=== PATIENT | female | born 1980 | race Caucasian/White ===

== ENCOUNTER 2018-03-16 10:35 | Inpatient (IN) | payer BC ==
[2018-03-16] MEDS ORDERED: Oxytocin/Lactated Ringers 10 UNIT/1,000 ML BAG IV SCH ×2 (11:15)
[2018-03-16] MEDS ORDERED: Nalbuphine 20 MG/ML 1 ML Syringe IVPUSH PRN (11:15)
[2018-03-16] MEDS ORDERED: Ondansetron 4 MG/2 ML SDV IVPUSH PRN (11:15)
[2018-03-16] MEDS: Lactated Ringers 1,000 ML IV SCH ×3 (13:38→18:27)
[2018-03-16] MEDS ORDERED: Lidocaine 1% 50 ML MDV INJECT ONE (15:00)
--- NOTE | 2018-03-16 15:49 | PCM.PREANE ---
Preanesthetic Assessment - Anesthesia/Transfusion/Family Hx Anesthesia History: Prior Anesthesia Without Reaction Family History of Anesthesia Reaction: No Transfusion History: No Prior Transfusion(s) - Review of Systems General: No Symptoms Pulmonary: No Symptoms Cardiovascular: No Symptoms Gastrointestinal: Abdominal Pain (labor contractions) Neurological: No Symptoms Other: Reports: Easy Bleeding (spoting with conractions) - Physical Assessment Pulse: 92 O2 Sat by Pulse Oximetry: 97 Respiratory Rate: 20 Blood Pressure: 115/82 Temperature: 36.3 C Vital Signs: Last Vital Signs Temp 36.2 C 03/16/18 11:35 Pulse 92 03/16/18 11:03 Resp BP 115/82 03/16/18 10:43 Pulse Ox 97 03/16/18 11:35 Height: 1.68 m Weight: 73.482 kg ASA Class: 2 Mental Status: Alert & Oriented x3 Airway Class: Mallampati = 1 Dentition: Reports: Normal Dentition Thyro-Mental Finger Breadths: 3 Mouth Opening Finger Breadths: 3 ROM/Head Extension: Full Lungs: Clear to Auscultation, Normal Respiratory Effort Cardiovascular: Regular Rate, Regular Rhythm - Lab Values: Laboratory Last Values WBC 11.91 K/mm3 (3.98-10.04) H 03/16/18 11:32 RBC 4.38 M/mm3 (3.98-5.22) 03/16/18 11:32 Hgb 13.6 gm/L (11.2-15.7) 03/16/18 11:32 Hct 40.0 % (34.1-44.9) 03/16/18 11:32 MCV 91.3 fl (79.4-94.8) 03/16/18 11:32 MCH 31.1 pg (25.6-32.2) 03/16/18 11:32 MCHC 34.0 g/dl (32.2-35.5) 03/16/18 11:32 RDW Std Deviation 45.4 fL (36.4-46.3) 03/16/18 11:32 Plt Count 188 K/mm3 (182-369) 03/16/18 11:32 MPV 10.1 fl (9.4-12.3) 03/16/18 11:32 Neut % (Auto) 71.6 % (34.0-71.1) H 03/16/18 11:32 Lymph % (Auto) 18.6 % (19.3-51.7) L 03/16/18 11:32 [place] % (Auto) 7.6 % (4.7-12.5) 03/16/18 11:32 Eos % (Auto) 0.6 (0.7-5.8) L 03/16/18 11:32 Baso % (Auto) 0.3 % (0.1-1.2) 03/16/18 11:32 Neut # (Auto) 8.51 K/mm3 (1.56-6.13) H 03/16/18 11:32 Lymph # (Auto) 2.22 K/mm3 (1.18-3.74) 03/16/18 11:32 [place] # (Auto) 0.91 K/mm3 (0.24-0.36) H 03/16/18 11:32 Eos # (Auto) 0.07 K/mm3 (0.04-0.36) 03/16/18 11:32 Baso # (Auto) 0.04 K/mm3 (0.01-0.08) 03/16/18 11:32 Manual Slide Review Normal smear 03/16/18 11:32 RPR Non-reactive (NONREACTIVE) 03/16/18 11:30 Blood Type A POSITIVE 03/16/18 11:30 Gel Antibody Screen Negative 03/16/18 11:30 - Allergies Allergies/Adverse Reactions: Allergies Allergy/AdvReac Type Severity Reaction Status Date / Time doxycycline Allergy Rash Verified 03/16/18 11:23 Sulfa (Sulfonamide Allergy Rash Verified 03/16/18 11:23 Antibiotics) - Anesthesia Plan Pre-Op Medication Ordered: None - Acknowledgements Anesthesia Type Planned: Epidural Pt an Appropriate Candidate for the Planned Anesthesia: Yes Alternatives and Risks of Anesthesia Discussed w Pt/Guardian: Yes Pt/Guardian Understands and Agrees with Anesthesia Plan: Yes PreAnesthesia Questionnaire Gastrointestinal History: Reports: GERD 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: Endocrine/Metabolic History: Reports: Other (See Below) Other Endocrine/Metabolic History: Graves disease - SUBSTANCE USE Smoking Status *Q: Never Smoker Second Hand Smoke Exposure: No Recreational Drug Use History: No - HOME MEDS Home Medications: Home Meds Levothyroxine 125 mcg PO DAILY 03/16/18 [History] Multivitamin [One Daily] 1 each PO DAILY 03/16/18 [History] [place]-3/DHA/Epa/Fish Oil [[place] 3 500 Softgel] 1 tab PO DAILY 03/16/18 [History] - CURRENT (IN HOUSE) MEDS Current Meds: Current Medications Lactated Ringer's (Ringers, Lactated) 1,000 mls @ 100 mls/hr IV ASDIRECTED JOELLE Last Admin: 03/16/18 13:38 Dose: 100 mls/hr Oxytocin/Lactated Ringer's (Pitocin In Lr 10 Units/1,000 Ml) 10 unit in 1,000 mls @ 12 mls/hr IV TITRATE JOELLE; Protocol Last Titration: 03/16/18 14:44 Dose: 6 munits/min, 36 mls/hr Oxytocin/Lactated Ringer's (Pitocin In Lr 10 Units/1,000 Ml) 10 unit in 1,000 mls @ 500 mls/hr IV .CONTINUOUS JOELLE Nalbuphine HCl (Nubain) 10 mg IVPUSH Q2H PRN PRN Reason: Pain (moderate 4-6) Ondansetron HCl (Zofran) 4 mg IVPUSH Q4H PRN PRN Reason: Nausea/Vomiting Discontinued Medications Lidocaine HCl (Xylocaine 1%) 50 ml INJECT ONETIME ONE Stop: 03/16/18 15:01
[2018-03-16] MEDS ORDERED: diphenhydrAMINE 50 MG/ML SDV IVPUSH PRN (15:50)
[2018-03-16] MEDS ORDERED: fentaNYL 100 MCG/2 ML SDV EPIDUR PRN (15:50)
[2018-03-16] MEDS ORDERED: ePHEDrine 50 MG/ML SDV IVPUSH PRN (15:50)
[2018-03-16] MEDS ORDERED: Bupivacaine/fentaNYL/NS 100 ML Bag EPIDUR SCH (16:00)
--- NOTE | 2018-03-16 21:41 | PCM.LDHP ---
L&D History of Present Illness - General Date of Service: 03/16/18 Admit Problem/Dx: Patient Status Order with Admit Dx/Problem 03/16/18 11:13 Patient Status [ADT] Routine Admission Diagnosis/Problem Admission Diagnosis/Problem Source of Information: Patient - History of Present Illness Introduction:: 37 year old at 40w3d here with an episode of bleeding. Had some bleeding at 35 weeks and was seen in [place]. No further bleeding since until today. Some decreased movement as well. 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: Endocrine/Metabolic History: Reports: Other (See Below) Other Endocrine/Metabolic History: Graves disease Social & Family History - Family History Family Medical History: Noncontributory - Tobacco Use Smoking Status *Q: Never Smoker Second Hand Smoke Exposure: No - Caffeine Use Caffeine Use: Reports: None - Recreational Drug Use Recreational Drug Use: No H&P Review of Systems - Review of Systems: Review Of Systems: See Below General: Reports: No Symptoms HEENT: Reports: No Symptoms Pulmonary: Reports: No Symptoms Cardiovascular: Reports: No Symptoms Gastrointestinal: Reports: No Symptoms Genitourinary: Reports: No Symptoms Musculoskeletal: Reports: No Symptoms Skin: Reports: No Symptoms Psychiatric: Reports: No Symptoms Neurological: Reports: No Symptoms Hematologic/Lymphatic: Reports: No Symptoms Immunologic: Reports: No Symptoms L&D Exam - Exam Exam: See Below - Vital Signs Vital Signs: Last Vital Signs Temp 36.3 C 03/16/18 15:49 Pulse 90 03/16/18 18:01 Resp 20 03/16/18 15:49 BP 121/70 03/16/18 18:01 Pulse Ox 100 03/16/18 17:30 Weight: 73.482 kg - OB Specific Fundal Height In cm: 41 Contraction Intensity: Irritability Movement: Active Heart Tones: Present Heart Tones per Min: 145 Heart Rate (FHR) Variability: Moderate (6-25 bmp) Presentation: Vertex - Nguyen Score Nguyen Score Cervix Position: Midposition Nguyen Score Consistency: Soft Nguyen Score Effacement: 31-50% Nguyen Score Dilation: 1-2 cm Nguyen Score Infant's Station: -3 Nguyen Score Total: 5 - Exam General: Alert, Oriented HEENT: PERRLA, Conjunctiva Clear, EACs Clear, EOMI, Hearing Intact, Mucosa Moist & Brooten, Nares Patent, Normal Nasal Septum, Posterior Pharynx Clear, TMs Clear Neck: Supple, Trachea Midline Lungs: Clear to Auscultation, Normal Respiratory Effort Cardiovascular: Regular Rate, Regular Rhythm GI/Abdominal Exam: Normal Bowel Sounds, Soft, Non-Tender, No Organomegaly, No Distention, No Abnormal Bruit, No Mass, Pelvis Stable Genitourinary: Normal external exam, Normal bimanual exam, Normal speculum exam Back Exam: Normal Inspection, Full Range of Motion Extremities: Normal Inspection, Normal Range of Motion, Non-Tender, No Pedal Edema, Normal Capillary Refill Skin: Warm, Dry, Intact Neurological: Cranial Nerves Intact, Reflexes Equal Bilateral Psychiatric: Alert, Normal Affect, Normal Mood - Patient Data Lab Results Last 24 hrs: Laboratory Results - last 24 hr 03/16/18 03/16/18 03/16/18 Range/Units 11:30 11:30 11:32 WBC 11.91 H (3.98-10.04) K/mm3 RBC 4.38 (3.98-5.22) M/mm3 Hgb 13.6 (11.2-15.7) gm/L Hct 40.0 (34.1-44.9) % MCV 91.3 (79.4-94.8) fl MCH 31.1 (25.6-32.2) pg MCHC 34.0 (32.2-35.5) g/dl RDW Std Deviation 45.4 (36.4-46.3) fL Plt Count 188 (182-369) K/mm3 MPV 10.1 (9.4-12.3) fl Neut % (Auto) 71.6 H (34.0-71.1) % Lymph % (Auto) 18.6 L (19.3-51.7) % [place] % (Auto) 7.6 (4.7-12.5) % Eos % (Auto) 0.6 L (0.7-5.8) Baso % (Auto) 0.3 (0.1-1.2) % Neut # (Auto) 8.51 H (1.56-6.13) K/mm3 Lymph # (Auto) 2.22 (1.18-3.74) K/mm3 [place] # (Auto) 0.91 H (0.24-0.36) K/mm3 Eos # (Auto) 0.07 (0.04-0.36) K/mm3 Baso # (Auto) 0.04 (0.01-0.08) K/mm3 Manual Slide Review Normal smear RPR Non-reactive (NONREACTIVE) Blood Type A POSITIVE Gel Antibody Screen Negative Result Diagrams: 03/16/18 11:32 Problem List Initiated/Reviewed/Updated: Yes Orders Last 24hrs: Active Orders 24 hr Category Date Time Status Patient Status [ADT] Routine ADT 03/16/18 11:13 Active Activity as Tolerated [RC] PFP Care 03/16/18 11:13 Active Communication Order [RC] ASDIRECTED Care 03/16/18 11:13 Active Notify Provider [RC] PRN Care 03/16/18 11:15 Active Oxygen Therapy [RC] ASDIRECTED Care 03/16/18 15:49 Active Vital Signs [RC] PER UNIT ROUTINE Care 03/16/18 11:15 Active Vital Signs [RC] Q15M Care 03/16/18 15:49 Active Regular Diet [DIET] Diet 03/16/18 Lunch Active Bupivacaine/fentaNYL/NS [fentaNYL/Bupivacaine/NS 2 MCG- Med 03/16/18 16:00 Active 0.125% 100 ML] 100 ml EPIDUR ASDIRECTED Lactated Ringers [Ringers, Lactated] 1,000 ml Med 03/16/18 11:15 Active IV ASDIRECTED Nalbuphine [Nubain] Med 03/16/18 11:15 Active 10 mg IVPUSH Q2H PRN Ondansetron [Zofran] Med 03/16/18 11:15 Active 4 mg IVPUSH Q4H PRN Oxytocin/Lactated Ringers [Pitocin in LR 10 Units/1,000 Med 03/16/18 11:15 Active ML] 10 unit in 1,000 ml IV .CONTINUOUS Oxytocin/Lactated Ringers [Pitocin in LR 10 Units/1,000 Med 03/16/18 11:15 Active ML] 10 unit in 1,000 ml IV TITRATE diphenhydrAMINE [Benadryl] Med 03/16/18 15:50 Active 25 mg IVPUSH Q6H PRN ePHEDrine [ePHEDrine Sulfate] Med 03/16/18 15:50 Active 5 mg IVPUSH ASDIRECTED PRN fentaNYL [Sublimaze] Med 03/16/18 15:50 Active 100 mcg EPIDUR Q3H PRN Electronic Heart Tones Ext w TOCO [WOMSER] Ot 03/16/18 11:15 Ordered Routine Electronic Heart Tones Internal [WOMSER] Per Unit Ot 03/16/18 11:15 Ordered Routine Peripheral IV Insertion Adult [OM.PC] Routine Oth 03/16/18 11:15 Ordered Resuscitation Status Routine Resus Stat 03/16/18 11:13 Ordered Medication Orders Diphenhydramine HCl (Benadryl) 25 mg IVPUSH Q6H PRN PRN Reason: Itching Ephedrine Sulfate (Ephedrine Sulfate) 5 mg IVPUSH ASDIRECTED PRN PRN Reason: HYPOTENTSION Fentanyl (Sublimaze) 100 mcg EPIDUR Q3H PRN PRN Reason: Pain Last Admin: 03/16/18 17:40 Dose: 100 mcg Fentanyl/Bupivacaine HCl (Fentanyl/Bupivacaine/Ns 2 Mcg-0.125% 100 Ml) 100 ml EPIDUR ASDIRECTED [facility] Last Admin: 03/16/18 17:40 Dose: 100 ml Lactated Ringer's (Ringers, Lactated) 1,000 mls @ 100 mls/hr IV ASDIRECTED [facility] Last Admin: 03/16/18 18:27 Dose: 100 mls/hr Infusion: 03/16/18 18:27 Dose: 100 mls/hr Admin: 03/16/18 17:12 Dose: 100 mls/hr Infusion: 03/16/18 17:12 Dose: 100 mls/hr Admin: 03/16/18 13:38 Dose: 100 mls/hr Oxytocin/Lactated Ringer's (Pitocin In Lr 10 Units/1,000 Ml) 10 unit in 1,000 mls @ 12 mls/hr IV TITRATE JOELLE; Protocol Last Titration: 03/16/18 18:53 Dose: 10 munits/min, 60 mls/hr Titration: 03/16/18 15:58 Dose: 8 munits/min, 48 mls/hr Titration: 03/16/18 14:44 Dose: 6 munits/min, 36 mls/hr Titration: 03/16/18 14:07 Dose: 4 munits/min, 24 mls/hr Admin: 03/16/18 13:38 Dose: 2 munits/min, 12 mls/hr Oxytocin/Lactated Ringer's (Pitocin In Lr 10 Units/1,000 Ml) 10 unit in 1,000 mls @ 500 mls/hr IV .CONTINUOUS JOELLE Nalbuphine HCl (Nubain) 10 mg IVPUSH Q2H PRN PRN Reason: Pain (moderate 4-6) Ondansetron HCl (Zofran) 4 mg IVPUSH Q4H PRN PRN Reason: Nausea/Vomiting Assessment/Plan Comment:: 37 year old at 40w3 here with decreased movement and small amount of bleeding. Initially decreased variability but now improved. Will proceed with augmentation of labor. AROM once able
--- NOTE | 2018-03-16 21:42 | PCM.PNLD ---
Labor Progress Note - VS & Meds Vital Signs: Last Vital Signs Temp 36.3 C 03/16/18 15:49 Pulse 90 03/16/18 18:01 Resp 20 03/16/18 15:49 BP 121/70 03/16/18 18:01 Pulse Ox 100 03/16/18 17:30 Active Medications: Current Medications Diphenhydramine HCl (Benadryl) 25 mg IVPUSH Q6H PRN PRN Reason: Itching Ephedrine Sulfate (Ephedrine Sulfate) 5 mg IVPUSH ASDIRECTED PRN PRN Reason: HYPOTENTSION Fentanyl (Sublimaze) 100 mcg EPIDUR Q3H PRN PRN Reason: Pain Last Admin: 03/16/18 17:40 Dose: 100 mcg Fentanyl/Bupivacaine HCl (Fentanyl/Bupivacaine/Ns 2 Mcg-0.125% 100 Ml) 100 ml EPIDUR ASDIRECTED JOELLE Last Admin: 03/16/18 17:40 Dose: 100 ml Lactated Ringer's (Ringers, Lactated) 1,000 mls @ 100 mls/hr IV ASDIRECTED JOELLE Last Admin: 03/16/18 18:27 Dose: 100 mls/hr Oxytocin/Lactated Ringer's (Pitocin In Lr 10 Units/1,000 Ml) 10 unit in 1,000 mls @ 12 mls/hr IV TITRATE JOELLE; Protocol Last Titration: 03/16/18 18:53 Dose: 10 munits/min, 60 mls/hr Oxytocin/Lactated Ringer's (Pitocin In Lr 10 Units/1,000 Ml) 10 unit in 1,000 mls @ 500 mls/hr IV .CONTINUOUS JOELLE Nalbuphine HCl (Nubain) 10 mg IVPUSH Q2H PRN PRN Reason: Pain (moderate 4-6) Ondansetron HCl (Zofran) 4 mg IVPUSH Q4H PRN PRN Reason: Nausea/Vomiting Discontinued Medications Lidocaine HCl (Xylocaine 1%) 50 ml INJECT ONETIME ONE Stop: 03/16/18 15:01 - Uterine Contractions Uterine Monitoring Mode: External [place] Contraction Intensity: Irritability - Monitoring Monitor Mode: External Ultrasound Heart Rate (FHR) Baseline: 145 Heart Rate (FHR) Variability: Moderate (6-25 bmp) Accelerations: Present, 15x15 Decelerations: None Strip Review: Category I - Vaginal Exam Dilation (cm): 4 Effacement (Percent): 70 Station: -2 Cervical Position: Midposition - Labor Progress (Free Text) Labor Progress: AROM. Meconium stained fluid. Anticipate . Notify peds for delivery.
--- NOTE | 2018-03-16 21:46 | PCM.SN ---
- Free Text/Narrative Note: Stage one - pt presented with irritability and slight bleeding and decreased movement. Augmentation with pitocin and AROM (meconium). Epidural. Progressed to complete with overall reassuring heart tones and no further bleeding. Stage two- of viable female, 3890g, at 2114 with apgars 8/9. Head delivered in controlled manner over intact perineum. Positive cry. Body and shoulders followed atraumatically. Cord clamped and cut and baby to warmer. Pitocin initiated. Stage three - of intact placenta. 3vc. 2nd degree MLL repaired with 3-0 vicryl. EBL 500.
[2018-03-16] MEDS ORDERED: Bupivacaine 0.25% 10 ML SDV ONE (22:00)
[2018-03-16] MEDS ORDERED: Ibuprofen 600 MG Tab PO PRN (22:35)
[2018-03-16] MEDS ORDERED: Lanolin 100% Cream 7 GM Tube TOP PRN (22:35)
[2018-03-16] MEDS ORDERED: Witch Hazel Medicated Pads 100/Jar TOP PRN (22:35)
[2018-03-16] MEDS ORDERED: Benzocaine/Menthol 20%-0.5% Spray 56 GM Canister TOP PRN (22:35)
[2018-03-16] MEDS ORDERED: Methylergonovine 0.2 MG/1 ML Amp IM ONE (22:47)
--- NOTE | 2018-03-17 06:36 | PCM.PNPP ---
- General Info Date of Service: 03/17/18 Functional Status: Reports: Pain Controlled - Review of Systems General: Reports: No Symptoms HEENT: Reports: No Symptoms Pulmonary: Reports: No Symptoms Cardiovascular: Reports: No Symptoms Gastrointestinal: Reports: No Symptoms Genitourinary: Reports: No Symptoms Musculoskeletal: Reports: No Symptoms Skin: Reports: No Symptoms Neurological: Reports: No Symptoms Psychiatric: Reports: No Symptoms - General Info Date of Service: 03/17/18 - Patient Data Vital Signs - Most Recent: Last Vital Signs Temp 37.1 C 03/17/18 04:41 Pulse 93 03/17/18 04:41 Resp 20 03/16/18 15:49 BP 94/67 03/17/18 04:41 Pulse Ox 98 03/17/18 04:41 Weight - Most Recent: 73.482 kg I&O - Last 24 Hours: Intake & Output 03/16/18 03/16/18 03/17/18 14:59 22:59 06:59 Intake Total 120 1000 Balance 120 1000 Lab Results - Last 24 Hours: Laboratory Results - last 24 hr 03/16/18 03/16/18 03/16/18 Range/Units 11:30 11:30 11:32 WBC 11.91 H (3.98-10.04) K/mm3 RBC 4.38 (3.98-5.22) M/mm3 Hgb 13.6 (11.2-15.7) gm/L Hct 40.0 (34.1-44.9) % MCV 91.3 (79.4-94.8) fl MCH 31.1 (25.6-32.2) pg MCHC 34.0 (32.2-35.5) g/dl RDW Std Deviation 45.4 (36.4-46.3) fL Plt Count 188 (182-369) K/mm3 MPV 10.1 (9.4-12.3) fl Neut % (Auto) 71.6 H (34.0-71.1) % Lymph % (Auto) 18.6 L (19.3-51.7) % [place] % (Auto) 7.6 (4.7-12.5) % Eos % (Auto) 0.6 L (0.7-5.8) Baso % (Auto) 0.3 (0.1-1.2) % Neut # (Auto) 8.51 H (1.56-6.13) K/mm3 Lymph # (Auto) 2.22 (1.18-3.74) K/mm3 [place] # (Auto) 0.91 H (0.24-0.36) K/mm3 Eos # (Auto) 0.07 (0.04-0.36) K/mm3 Baso # (Auto) 0.04 (0.01-0.08) K/mm3 Manual Slide Review Normal smear RPR Non-reactive (NONREACTIVE) Blood Type A POSITIVE Gel Antibody Screen Negative Med Orders - Current: Current Medications Benzocaine/Menthol (Dermoplast Pain Relief [place]) 0 gm TOP ASDIRECTED PRN PRN Reason: Perineal Comfort Measure Last Admin: 03/17/18 00:12 Dose: 1 can Emollient Ointment (Lansinoh Hpa) 0 gm TOP ASDIRECTED PRN PRN Reason: Sore Nipples Ibuprofen (Motrin) 600 mg PO Q6H PRN PRN Reason: Mild pain or fever Witch [place] (Tucks) 1 pad TOP ASDIRECTED PRN PRN Reason: Hemorrhoid pain Last Admin: 03/17/18 00:12 Dose: 1 can Discontinued Medications Diphenhydramine HCl (Benadryl) 25 mg IVPUSH Q6H PRN PRN Reason: Itching Ephedrine Sulfate (Ephedrine Sulfate) 5 mg IVPUSH ASDIRECTED PRN PRN Reason: HYPOTENTSION Fentanyl (Sublimaze) 100 mcg EPIDUR Q3H PRN PRN Reason: Pain Last Admin: 03/16/18 17:40 Dose: 100 mcg Fentanyl/Bupivacaine HCl (Fentanyl/Bupivacaine/Ns 2 Mcg-0.125% 100 Ml) 100 ml EPIDUR ASDIRECTED JOELLE Last Admin: 03/16/18 17:40 Dose: 100 ml Lactated Ringer's (Ringers, Lactated) 1,000 mls @ 100 mls/hr IV ASDIRECTED JOELLE Last Admin: 03/16/18 18:27 Dose: 100 mls/hr Oxytocin/Lactated Ringer's (Pitocin In Lr 10 Units/1,000 Ml) 10 unit in 1,000 mls @ 12 mls/hr IV TITRATE JOELLE; Protocol Last Titration: 03/16/18 18:53 Dose: 10 munits/min, 60 mls/hr Oxytocin/Lactated Ringer's (Pitocin In Lr 10 Units/1,000 Ml) 10 unit in 1,000 mls @ 500 mls/hr IV .CONTINUOUS JOELLE Lidocaine HCl (Xylocaine 1%) 50 ml INJECT ONETIME ONE Stop: 03/16/18 15:01 Last Admin: 03/17/18 03:21 Dose: Not Given Methylergonovine Maleate (Methergine) 0.2 mg IM ONETIME ONE Stop: 03/16/18 22:48 Last Admin: 03/16/18 22:58 Dose: 0.2 mg Nalbuphine HCl (Nubain) 10 mg IVPUSH Q2H PRN PRN Reason: Pain (moderate 4-6) Ondansetron HCl (Zofran) 4 mg IVPUSH Q4H PRN PRN Reason: Nausea/Vomiting - Interaction Infant Disposition, : Ralph at Bedside Support Person: - Recovery Exam Fundal Tone: Firm Fundal Level: At Umbilicus Fundal Placement: Midline Lochia Amount: Small Lochia Color: Rubra/Red Episiotomy/Laceration: Approximated Bladder Status: Voiding - Exam General: Alert, Oriented HEENT: Pupils Equal Neck: Supple Lungs: Clear to Auscultation, Normal Respiratory Effort Cardiovascular: Regular Rate, Regular Rhythm GI/Abdominal Exam: Normal Bowel Sounds, Soft, Non-Tender, No Organomegaly, No Distention, No Abnormal Bruit Extremities: Normal Inspection, Normal Range of Motion, Non-Tender, No Pedal Edema, Normal Capillary Refill Skin: Warm, Dry, Intact Neurological: No New Focal Deficit Psy/Mental Status: Alert, Normal Affect, Normal Mood - Problem List Review Problem List Initiated/Reviewed/Updated: Yes - My Orders Last 24 Hours: My Active Orders 03/16/18 11:13 Resuscitation Status Routine 03/16/18 22:35 Activity as Tolerated [RC] PER UNIT ROUTINE Vital Signs [RC] ASDIRECTED Benzocaine/Menthol [Dermoplast Pain Relief [place]] See Dose Instructions TOP ASDIRECTED PRN Ibuprofen [Motrin] 600 mg PO Q6H PRN Lanolin [Lansinoh HPA] See Dose Instructions TOP ASDIRECTED PRN [place] [Tucks] 1 pad TOP ASDIRECTED PRN Assess Lochia [WOMSER] Per Unit Routine Assess Uterine Involution [WOMSER] Per Unit Routine Breast Pump [WOMSER] Per Unit Routine Heat Therapy [OM.PC] PRN Medication Administration Instruction [OM.PC] Routine Perineal Care [OM.PC] Per Unit Routine Sitz Bath [OM.PC] Per Unit Routine 03/17/18 22:35 Heat Therapy [OM.PC] PRN - Assessment Assessment:: PPD1 Some increased bleeding immediately post delivery. Doing well otherwise. Pain and bleeding controlled. - Plan Plan:: 37 year old at 40w3 here with decreased movement and small amount of bleeding. Initially decreased variability but now improved. Will proceed with augmentation of labor. AROM once able
[2018-03-17] MEDS: LEVOTHYROXINE 125 MCG PO SCH (08:30)
[2018-03-18] MEDS: LEVOTHYROXINE 125 MCG PO SCH (05:54)
--- NOTE | 2018-03-18 07:00 | PCM.DCSUM1 ---
Discharge Summary - Hospital Course HPI Initial Comments: Admitted for augmentation of labor. Pitocin and AROM. Progressed to complete and had . bleeding of approximately 800 in first hour. Then minimal. Otherwise uncomplicated course. Diagnosis: Stroke: No - Discharge Data Discharge Date: 03/18/18 Discharge Disposition: Home, Self-Care 01 Condition: Good - Patient Instructions Diet: Usual Diet as Tolerated Activity: No Strenuous Activities Driving: May Drive Today Showering/Bathing: May Shower Notify Provider of: Fever, Increased Pain, Swelling and Redness, Drainage, Nausea and/or Vomiting - Discharge Plan Home Medications: Home Meds Levothyroxine 125 mcg PO DAILY 03/16/18 [History] Multivitamin [One Daily] 1 each PO DAILY 03/16/18 [History] [place]-3/DHA/Epa/Fish Oil [[place] 3 500 Softgel] 1 tab PO DAILY 03/16/18 [History] Patient Handouts: Vaginal Delivery, Care After Referrals: Chelo Nails MD [Primary Care Provider] - (4 weeks) - General Info Date of Service: 03/18/18 Functional Status: Reports: Pain Controlled - Review of Systems General: Reports: No Symptoms HEENT: Reports: No Symptoms Pulmonary: Reports: No Symptoms Cardiovascular: Reports: No Symptoms Gastrointestinal: Reports: No Symptoms Genitourinary: Reports: No Symptoms Musculoskeletal: Reports: No Symptoms Skin: Reports: No Symptoms Neurological: Reports: No Symptoms Psychiatric: Reports: No Symptoms - Patient Data Vitals - Most Recent: Last Vital Signs Temp 36.7 C 03/18/18 03:30 Pulse 92 03/18/18 03:12 Resp 15 03/18/18 03:12 BP 106/80 03/18/18 03:12 Pulse Ox 99 03/18/18 03:12 Weight - Most Recent: 73.482 kg I&O - Last 24 hours: Intake & Output 03/17/18 03/17/18 03/18/18 14:59 22:59 06:59 Intake Total 240 Balance 240 Med Orders - Current: Current Medications Benzocaine/Menthol (Dermoplast Pain Relief D[place]) 0 gm TOP ASDIRECTED PRN PRN Reason: Perineal Comfort Measure Last Admin: 03/17/18 00:12 Dose: 1 can Emollient Ointment (Lansinoh Hpa) 0 gm TOP ASDIRECTED PRN PRN Reason: Sore Nipples Ibuprofen (Motrin) 600 mg PO Q6H PRN PRN Reason: Mild pain or fever Levothyroxine Sodium (Levothyroxine) 125 mcg PO ACBREAKFAST [facility] Last Admin: 03/18/18 05:54 Dose: 125 mcg Witch Armida (Tucks) 1 pad TOP ASDIRECTED PRN PRN Reason: Hemorrhoid pain Last Admin: 03/17/18 00:12 Dose: 1 can Discontinued Medications Bupivacaine HCl (Sensorcaine-Mpf 0.25%) 10 ml .ROUTE .STK-MED ONE Stop: 03/16/18 22:01 Diphenhydramine HCl (Benadryl) 25 mg IVPUSH Q6H PRN PRN Reason: Itching Ephedrine Sulfate (Ephedrine Sulfate) 5 mg IVPUSH ASDIRECTED PRN PRN Reason: HYPOTENTSION Fentanyl (Sublimaze) 100 mcg EPIDUR Q3H PRN PRN Reason: Pain Last Admin: 03/16/18 17:40 Dose: 100 mcg Fentanyl/Bupivacaine HCl (Fentanyl/Bupivacaine/Ns 2 Mcg-0.125% 100 Ml) 100 ml EPIDUR ASDIRECTED [facility] Last Admin: 03/16/18 17:40 Dose: 100 ml Lactated Ringer's (Ringers, Lactated) 1,000 mls @ 100 mls/hr IV ASDIRECTED JOELLE Last Admin: 03/16/18 18:27 Dose: 100 mls/hr Oxytocin/Lactated Ringer's (Pitocin In Lr 10 Units/1,000 Ml) 10 unit in 1,000 mls @ 12 mls/hr IV TITRATE JOELLE; Protocol Last Titration: 03/16/18 18:53 Dose: 10 munits/min, 60 mls/hr Oxytocin/Lactated Ringer's (Pitocin In Lr 10 Units/1,000 Ml) 10 unit in 1,000 mls @ 500 mls/hr IV .CONTINUOUS JOELLE Lidocaine HCl (Xylocaine 1%) 50 ml INJECT ONETIME ONE Stop: 03/16/18 15:01 Last Admin: 03/17/18 03:21 Dose: Not Given Methylergonovine Maleate (Methergine) 0.2 mg IM ONETIME ONE Stop: 03/16/18 22:48 Last Admin: 03/16/18 22:58 Dose: 0.2 mg Nalbuphine HCl (Nubain) 10 mg IVPUSH Q2H PRN PRN Reason: Pain (moderate 4-6) Ondansetron HCl (Zofran) 4 mg IVPUSH Q4H PRN PRN Reason: Nausea/Vomiting - Exam General: Reports: Alert, Oriented HEENT: Reports: Pupils Equal, Pupils Reactive, EOMI, Mucous Membr. Moist/[place] Neck: Reports: Supple Lungs: Reports: Clear to Auscultation, Normal Respiratory Effort Cardiovascular: Reports: Regular Rate, Regular Rhythm GI/Abdominal Exam: Normal Bowel Sounds, Soft, Non-Tender, No Organomegaly, No Distention, No Abnormal Bruit, No Mass, Pelvis Stable Back Exam: Reports: Normal Inspection, Full Range of Motion Extremities: Normal Inspection, Normal Range of Motion, Non-Tender, No Pedal Edema, Normal Capillary Refill Skin: Reports: Warm, Dry, Intact Wound/Incisions: Reports: Healing Well Neurological: Reports: No New Focal Deficit Psy/Mental Status: Reports: Alert, Normal Affect, Normal Mood
== END 2018-03-18 12:15 | disposition home or self-care (01) | DRG 560 ==
LOC: JD.OBCHECK 10:35 → JD.OB 10:42 → JD.OBCHECK 11:12 → JD.OB 11:13 → OBSVTOIN 21:14 → JD.OB 21:15
PROVIDERS: ADMIT Obstetrics & Gynecology; ATTEND Obstetrics & Gynecology
PROC: 10E0XZZ Delivery of Products of Conception, External Approach (ICD-10-PCS; principal; 2018-03-16)
PROC: 10907ZC Drainage of Amniotic Fluid, Therapeutic from Products of Conception, Via Natural or Artificial Opening (ICD-10-PCS; 2018-03-16)
PROC: 0KQM0ZZ Repair Perineum Muscle, Open Approach (ICD-10-PCS; 2018-03-16)
PROC: 00HU33Z Insertion of Infusion Device into Spinal Canal, Percutaneous Approach (ICD-10-PCS; 2018-03-16)
PROC: 3E0R3BZ Introduction of Anesthetic Agent into Spinal Canal, Percutaneous Approach (ICD-10-PCS; 2018-03-16)
DX: O48.0 Post-term pregnancy (principal); Z3A.40 40 weeks gestation of pregnancy; Z37.0 Single live birth; Z88.1 Allergy status to other antibiotic agents; Z88.2 Allergy status to sulfonamides; O99.284 Endocrine, nutritional and metabolic diseases complicating childbirth; E05.00 Thyrotoxicosis with diffuse goiter without thyrotoxic crisis or storm; Z79.899 Other long term (current) drug therapy; O36.8130 Decreased fetal movements, third trimester, not applicable or unspecified; O70.1 Second degree perineal laceration during delivery; O72.1 Other immediate postpartum hemorrhage; O77.0 Labor and delivery complicated by meconium in amniotic fluid
CPT/HCPCS: 36415; 51702; 59025; 59300; 59409; 85025; 86592; 86850; 86900; 86901; A9270-GY; J2210; J2590; J3010; J7120

== ENCOUNTER 2024-06-22 20:36 | Emergency (ER) | payer BC ==
[2024-06-22 21:10] LABS: BASOPHILS ABSOLUTE AUTO 0.1 K/mm3 (0.0-0.2); BASOPHILS PERCENT AUTO 0.9 % (0.0-1.0); EOSINOPHILS PERCENT AUTO 0.4 % (0.0-6.0); HEMATOCRIT 41.3 % (37.0-47.0); HEMOGLOBIN 13.8 gm/dl (12.0-16.0); IMMATURE GRAN ABSOLUTE AUTO 0.01 K/mm3 (0.00-0.05); IMMATURE GRAN PERCENT AUTO 0.1 % (0.0-0.4); LYMPHOCYTES ABSOLUTE AUTO 1.7 K/mm3 (1.0-4.8); LYMPHOCYTES PERCENT AUTO 21.8 % (24.0-44.0); MEAN CORPUSCULAR HGB CONC 33.4 g/dl (32.0-36.0); MEAN CORPUSCULAR VOLUME 83.9 fl (83.0-99.0); MEAN PLATELET VOLUME 10.3 fl (9.4-12.3); MONOCYTES ABSOLUTE AUTO 0.7 K/mm3 (0.0-0.8); MONOCYTES PERCENT AUTO 8.6 % (0.0-8.0); NEUTROPHILS ABSOLUTE AUTO 5.2 K/mm3 (1.8-7.7); NEUTROPHILS PERCENT AUTO 68.2 % (41.0-71.0); PLATELET COUNT,PLT 288 K/mm3 (150-400); RED BLOOD CELL COUNT 4.92 M/mm3 (4.10-5.30); WHITE BLOOD CELL COUNT,WBC 7.58 K/mm3 (3.9-11.3)
[2024-06-22 21:25] LABS: INR 1.04
[2024-06-22 21:27] LABS: PTT,PARTIAL THROMBOPLSTIN TIME 27.5 SECONDS (21.7-31.4)
[2024-06-22] MEDS: LORazepam 0.5 MG Tab PO ONE (21:27)
[2024-06-22] MEDS: Alum Hydrox/Mag Hydrox/Simeth 30 ML, Lidocaine 2% 15 ML PO ONE (21:27)
[2024-06-22] MEDS: Lactated Ringers 1,000 ML IV ONE (21:27)
[2024-06-22 21:43] LABS: ALANINE AMINOTRANSFERASE,ALT 22 U/L (14-59); ALBUMIN 3.9 g/dl (3.4-5.0); ALKALINE PHOSPHATASE 56 U/L (46-116); ANION GAP 13.8 (5-15); ASPARTATE AMNIOTRANSFERASE,AST 17 U/L (15-37); BILIRUBIN TOTAL 0.4 mg/dL (0.2-1.0); BLOOD UREA NITROGEN,BUN 16 mg/dL (7-18); CALCIUM 9.4 mg/dL (8.5-10.1); CARBON DIOXIDE,CO2 26 mEq/L (21-32); CHLORIDE,CL 104 mEq/L (98-107); EST CRCL DRUG DOSING (CG) 68.61 mL/min; ESTIMATED GFR 72 mL/min (>60); GLUCOSE RANDOM 114 mg/dL (70-99); POTASSIUM,K 3.8 mEq/L (3.5-5.1); PROTEIN TOTAL,TP 7.7 g/dl (6.4-8.2); SODIUM,NA 140 mEq/L (136-145)
[2024-06-22 21:49] LABS: TROPONIN I HIGH SENSITIVITY < 4 pg/mL (<=51)
== END 2024-06-22 23:00 | disposition home or self-care (01) ==
LOC: JD.ED 20:36
DX: R07.89 Other chest pain (principal); F41.9 Anxiety disorder, unspecified; K21.9 Gastro-esophageal reflux disease without esophagitis; Z79.899 Other long term (current) drug therapy; Z87.891 Personal history of nicotine dependence; Z88.1 Allergy status to other antibiotic agents; Z88.2 Allergy status to sulfonamides
CPT/HCPCS: 36415; 71045; 80053; 83735; 83880; 84484; 85025; 85610; 85730; 93005; 96360; 99285; A9270; J7120